=== PATIENT | male | born 1955 | race Caucasian/White ===

== ENCOUNTER 2016-09-25 11:51 | Emergency (ER) | payer MEDICARE, OTHER ==
[2016-09-25 12:40] VITALS: TEMP 98.3
[2016-09-25] MEDS ORDERED: RX INFO: IV CONTRAST WAS GIVEN 1 EACH MISC MISCELLANE PRN (15:06)
--- NOTE | 2016-09-25 15:09 | ED ---
Recheck HPI - General Chief Complaint: Recheck/Abnormal Lab/Rx Stated Complaint: abn labs, face swollen Time Seen by Provider: 09/25/16 14:58 Source: patient, RN notes reviewed Mode of arrival: ambulatory Limitations: no limitations - History of Present Illness Initial Comments: This a 61-year-old male presents emergency Department chief complaint of facial swelling, elevated white blood cell count. Patient states that the swelling and redness yesterday went primary care physician's office who ordered lab work and told him come emergency department secondary to elevated white blood cell count. Patient some similar to this a few months ago and was diagnosed with cellulitis. They're concerned about his parotid gland or possible abscess. Patient denies fever or chills. Denies any dental pain, difficult to swelling, headache, dizziness, chest pain or shortness breath. - Related Data Home Medications Medication Instructions Recorded Confirmed Albuterol Inhaler [Ventolin Hfa 2 puff INHALATION RT-BID 09/25/16 09/25/16 Inhaler] Ascorbic Acid [Vitamin C] 1,000 mg PO W/SUPPER 09/25/16 09/25/16 Aspirin EC [Ecotrin Low Dose] 81 mg PO W/SUPPER 09/25/16 09/25/16 Atorvastatin [Lipitor] 10 mg PO HS 09/25/16 09/25/16 Calcium Carbonate [Calcium] 600 mg PO BID 09/25/16 09/25/16 Cholecalciferol [Vitamin D3] 1,000 unit PO W/SUPPER 09/25/16 09/25/16 Ciprofloxacin HCl [Cipro] 500 mg PO BID 09/25/16 09/25/16 Citalopram Hydrobromide [CeleXA] 20 mg PO DAILY 09/25/16 09/25/16 Cyanocobalamin (Vitamin B-12) 2,000 mcg PO QAM 09/25/16 09/25/16 [Vitamin B-12] Donepezil [Aricept] 10 mg PO QAM 09/25/16 09/25/16 Fish Oil/Dha/Epa [Fish Oil 1,200 2 cap PO BID 09/25/16 09/25/16 mg Fish Oil] Fluticasone/Salmeterol [Advair Hfa 2 puff INHALATION RT-BID 09/25/16 09/25/16 230-21 Mcg Inhaler] Garlic 1 tab PO W/SUPPER 09/25/16 09/25/16 Gatifloxacin [Zymaxid] 1 drop BOTH EYES DAILY PRN 09/25/16 09/25/16 Gemfibrozil [Lopid] 600 mg PO AC-BID 09/25/16 09/25/16 Magnesium Oxide [Mag-Ox] 400 mg PO W/SUPPER 09/25/16 09/25/16 Meloxicam [Mobic] 7.5 mg PO DAILY 09/25/16 09/25/16 Memantine [Namenda] 10 mg PO BID 09/25/16 09/25/16 Metamucil Wafer 1 wafer PO QAM 09/25/16 09/25/16 Niacin (Inositol Niacinate) 400 mg PO BID 09/25/16 09/25/16 [Niacin Flush Free 500 mg Cap] Omeprazole 20 mg PO DAILY 09/25/16 09/25/16 Previous Rx's Medication Instructions Recorded Amoxicillin/Potassium Clav 1 tab PO Q12HR #20 tab 09/25/16 [Augmentin 875-125 Tablet] Allergies Allergy/AdvReac Type Severity Reaction Status Date / Time No Known Allergies Allergy Verified 09/25/16 15:42 Review of Systems ROS Statement: Those systems with pertinent positive or pertinent negative responses have been documented in the HPI. ROS Other: All systems not noted in ROS Statement are negative. Past Medical History Past Medical History: Dementia Additional Past Medical History / Comment(s): Downs syndrome History of Any Multi-Drug Resistant Organisms: None Reported Past Surgical History: Appendectomy Additional Past Surgical History / Comment(s): hip replacement Right side. lower right lobe from lug removed. Past Psychological History: No Psychological Hx Reported Smoking Status: Never smoker Past Alcohol Use History: None Reported Past Drug Use History: None Reported General Exam Limitations: no limitations General appearance: alert, in no apparent distress Head exam: Present: atraumatic, normocephalic, normal inspection Eye exam: Present: normal appearance, PERRL, EOMI. Absent: scleral icterus, conjunctival injection, periorbital swelling ENT exam: Present: mucous membranes moist, TM's normal bilaterally, normal external ear exam. Absent: normal exam (Swollen noted along the left side of the mandible angle), normal oropharynx (Some missing dentition noted no abscess or abnormal lesions noted) Neck exam: Present: normal inspection, full ROM. Absent: tenderness, meningismus, lymphadenopathy Respiratory exam: Present: normal lung sounds bilaterally. Absent: respiratory distress, wheezes, rales, rhonchi, stridor Cardiovascular Exam: Present: regular rate, normal rhythm, normal heart sounds. Absent: systolic murmur, diastolic murmur, rubs, gallop, clicks Neurological exam: Present: alert Skin exam: Present: warm, dry, intact, normal color. Absent: rash Course Vital Signs 09/25/16 09/25/16 12:37 15:53 Temperature 98.3 F Pulse Rate 64 72 Respiratory 20 18 Rate Blood Pressure 108/55 109/57 O2 Sat by Pulse 97 96 Oximetry Medical Decision Making - Medical Decision Making This is a 61-year-old male presented for facial swelling. Patient CT does show x-ray shows parotic gland though he has a normal amylase. Patient had improvement of his white count 18-[address] Bravo and he'll be placed on antibiotics for prostatitis. We did discuss increasing salivation with foods and drinks. Patient was on Cipro and were discussed including clindamycin to his Cipro treatment really prefers single antibiotic and which she'll be switched to Augmentin. - Lab Data Result diagrams: 09/25/16 15:38 09/25/16 15:38 Lab Results 09/25/16 09/25/16 Range/Units 15:38 15:38 WBC 11.4 H (3.8-10.6) k/uL RBC 3.82 L (4.30-5.90) m/uL Hgb 13.2 (13.0-17.5) gm/dL Hct 39.1 (39.0-53.0) % MCV 102.3 H (80.0-100.0) fL MCH 34.6 (25.0-35.0) pg MCHC 33.9 (31.0-37.0) g/dL RDW 13.5 (11.5-15.5) % Plt Count 369 (150-450) k/uL Neutrophils % 76 % Lymphocytes % 10 % Monocytes % 10 % Eosinophils % 2 % Basophils % 1 % Neutrophils # 8.7 H (1.3-7.7) k/uL Lymphocytes # 1.1 (1.0-4.8) k/uL Monocytes # 1.1 H (0-1.0) k/uL Eosinophils # 0.2 (0-0.7) k/uL Basophils # 0.1 (0-0.2) k/uL Macrocytosis Slight Sodium 141 (137-145) mmol/L Potassium 4.2 (3.5-5.1) mmol/L Chloride 106 (98-107) mmol/L Carbon Dioxide 22 (22-30) mmol/L Anion Gap 13 mmol/L BUN 29 H (9-20) mg/dL Creatinine 1.13 (0.66-1.25) mg/dL Est GFR (MDRD) Af Amer >60 (>60 ml/min/1.73 sqM) Est GFR (MDRD) Non-Af >60 (>60 ml/min/1.73 sqM) Glucose 100 H (74-99) mg/dL Calcium 9.1 (8.4-10.2) mg/dL Total Bilirubin 0.6 (0.2-1.3) mg/dL AST 30 (17-59) U/L ALT 30 (21-72) U/L Alkaline Phosphatase 167 H (38-126) U/L Total Protein 7.8 (6.3-8.2) g/dL Albumin 3.8 (3.5-5.0) g/dL Amylase 95 (30-110) U/L Disposition Clinical Impression: Parotitis Disposition: HOME SELF-CARE Condition: Stable Instructions: Sialoadenitis (ED) Additional Instructions: Please return to the Emergency Department if symptoms worsen or any other concerns. Prescriptions: Amoxicillin/Potassium Clav [Augmentin 875-125 Tablet] 1 tab PO Q12HR #20 tab Referrals: Robles Calhoun MD [Primary Care Provider] - 1-2 days Time of Disposition: 17:53
[2016-09-25 15:54] VITALS: RESP 18
[2016-09-25 16:01] LABS: ALT 30 U/L (21-72); AST 30 U/L (17-59); Alkaline Phosphatase 167 U/L (38-126); Amylase 95 U/L (30-110); Anion Gap 13 mmol/L; Blood Urea Nitrogen 29 mg/dL (9-20); Calcium 9.1 mg/dL (8.4-10.2); Carbon Dioxide 22 mmol/L (22-30); Chloride 106 mmol/L (98-107); Glucose 100 mg/dL (74-99); Non-African American GFR(MDRD) >60 (>60 ml/min/1.73 sqM); Potassium 4.2 mmol/L (3.5-5.1); Sodium 141 mmol/L (137-145); Total Bilirubin 0.6 mg/dL (0.2-1.3); Total Protein 7.8 g/dL (6.3-8.2)
[2016-09-25 16:11] LABS: Basophils # (A) 0.1 k/uL (0-0.2); Basophils % (A) 1 %; CH 34.6; Eosinophils # (A) 0.2 k/uL (0-0.7); Eosinophils % (A) 2 %; HCT 39.1 % (39.0-53.0); HDW 2.32; HGB 13.2 gm/dL (13.0-17.5); Luc # (Auto) 0.25; Luc % (Auto) 2; Lymphocytes # (A) 1.1 k/uL (1.0-4.8); Lymphocytes % (A) 10 %; MCH 34.6 pg (25.0-35.0); MCHC 33.9 g/dL (31.0-37.0); MCV 102.3 fL (80.0-100.0); Macrocytosis Slight; Mean Platelet Volume 7.3; Monocytes # (A) 1.1 k/uL (0-1.0); Monocytes % (A) 10 %; Neutrophils # (A) 8.7 k/uL (1.3-7.7); Neutrophils % (A) 76 %; RBC 3.82 m/uL (4.30-5.90); RDW 13.5 % (11.5-15.5); WBC 11.4 k/uL (3.8-10.6); WBC (Perox) 10.81
--- NOTE | 2016-09-25 17:13 | CT ---
EXAMINATION TYPE: CT soft tissue neck w con DATE OF EXAM: 09/25/2016 4:53 PM COMPARISON: NONE HISTORY: 61-year-old male with neck swelling and pain since yesterday TECHNIQUE: Contiguous axial scanning of the neck performed with IV Contrast, patient injected with 10 0 mL of Omnipaque 300. Coronal/sagittal reconstructions performed. CT DLP: 488.30 mGycm Automated exposure control for dose reduction was used. FINDINGS: Visualized intracranial structures, orbits and globes, mastoid air cells appear within normal limits. There is moderate mucosal thickening within the maxillary sinuses and small air-fluid levels in the maxillary and left sphenoid sinuses. Leftward nasal septal deviation. Nasopharynx is clear. Hypertrophy of the lingual tonsils. Some asymmetry of the left aryepiglottic f old probably due to positioning. Glottic and subglottic airway, trachea, and visualized upper lungs a ppear clear. The epiglottis and prevertebral soft tissues are within normal limits. Thyroid gland and submandibular glands are within normal limits. Right parotid gland appears atrophic . There is enlargement and enhancement diffusely throughout the left parotid gland with adjacent subcut aneous fat stranding and mild tracking edema. There may be some more nodular areas of enhancement peter ng the parotid tail, for example, axial image 64. Asymmetric skin thickening along the left side of the face, jaw, and upper neck with reticulations in the subcutaneous fat here. Overlying the left platysma muscle at the anterior upper neck, there is a 3.8 x 1.6 cm ovoid fat dens ity lesion that has mild mass effect onto the underlying platysma suggestive of a lipoma. Borderline enlarged left greater than right upper cervical lymph nodes measuring up to 1.3 cm on the left and 1.1 cm on the right. Some asymmetrically enlarged left submandibular space lymph nodes measu re up to 9 mm. Degenerative changes mid to lower cervical spine. IMPRESSION: 1. ASYMMETRIC ENLARGEMENT WITH DIFFUSE ENHANCEMENT AND SURROUNDING INFLAMMATION OF THE LEFT PAROTID G LAND. CORRELATE FOR PAROTITIS. 2. ASSOCIATED CELLULITIS ALONG THE LEFT SIDE OF THE FACE, JAW, AND UPPER NECK. 3. BORDERLINE TO MILDLY ENLARGED LEFT GREATER THAN RIGHT UPPER CERVICAL LYMPH NODES LIKELY REACTIVE. RECOMMEND CLINICAL FOLLOW-UP TO ENSURE THAT THESE GRADUALLY DECREASE IN SIZE WITH TREATMENT. 4. INCIDENTAL 3.8 CM LIPOMA ANTERIOR LEFT UPPER NECK OVERLYING THE PLATYSMA. 5. CORRELATE FOR ACUTE ON CHRONIC SINUSITIS..
[2016-09-25 18:20] VITALS: BP 105/59; PULSE 78
== END 2016-09-25 18:20 | disposition home or self-care (01) ==
LOC: EC 11:51
DX: K11.20 Sialoadenitis, unspecified (principal); D17.0 Benign lipomatous neoplasm of skin and subcutaneous tissue of head, face and neck; J32.9 Chronic sinusitis, unspecified; F03.90 Unspecified dementia, unspecified severity, without behavioral disturbance, psychotic disturbance, mood disturbance, and anxiety; Z79.51 Long term (current) use of inhaled steroids; Z79.82 Long term (current) use of aspirin; Z79.899 Other long term (current) drug therapy
CPT/HCPCS: 99284; 36415; 80053; 82150; 85025; 87040; 70491; Q9967

== ENCOUNTER 2018-05-27 06:11 | Day surgery (SDC) | payer MEDICARE, OTHER ==
[2018-05-25 16:38] VITALS: BMI 38.5
[~2018-05-27 06:11] MED LIST: DEXAMETHASONE SOD PHOSPHATE 10 MG/ML 1 ML VIAL IV ONE; HYDROmorphone 0.5 MG/0.5 ML SYRINGE IVP PRN; LIDOCAINE 1% 20 ML VIAL (10MG/ML) FOR IV START INTRADERMA PRN; ONDANSETRON 4 MG/2 ML VIAL IVP ONE; SCOPOLAMINE 1.5MG/72HR PATCH TRANSDERM ONE; ceFAZolin IN SWFI 2 GM/20 ML SYRINGE IVP ONE; metroNIDAZOLE-NS PMX 500 MG in SALINE 1 100ML.BAG IVPB ONE
[2018-05-27] MEDS ORDERED: LACTATED RINGERS 1,000 ML IV SCH (06:15)
[2018-05-27 06:54] VITALS: TEMP 98.4
[2018-05-27] MEDS ORDERED: GLYCOPYRROLATE 0.2 MG/ML 2 ML VIAL ONE (07:28)
[2018-05-27] MEDS ORDERED: MIDAZOLAM 2 MG/2 ML VIAL ONE (07:28)
[2018-05-27] MEDS ORDERED: LIDOCAINE 1% INJ 10MG/ML (20 ML MDV) ONE (07:28)
[2018-05-27] MEDS ORDERED: PROPOFOL 10 MG/ML 20 ML VIAL IV ONE (07:28)
[2018-05-27] MEDS ORDERED: SUCCINYLCHOLINE CHLORIDE 100 MG/5 ML SYR IV ONE (07:28)
[2018-05-27] MEDS ORDERED: ePHEDrine SULFATE/0.9% NACL/PF 50 MG/5 ML SYRINGE IV ONE (07:28)
[2018-05-27] MEDS ORDERED: PHENYLEPHRINE-0.9% NACL SYG 1 MG/10 ML SYRINGE ONE (07:28)
[2018-05-27] MEDS ORDERED: NEOSTIGMINE 1 MG/ML 10 ML VIAL ONE (07:28)
[2018-05-27] MEDS ORDERED: fentaNYL (PF) 50 MCG/ML 2 ML AMP ONE (07:28)
[2018-05-27] MEDS ORDERED: ROCURONIUM BROMIDE 10 MG/ML 10 ML VIAL IV ONE (07:28)
[2018-05-27] MEDS ORDERED: LIDOCAINE 2%-EPI 1:200,000 20 ML VIAL SQ ONE ×2 (07:42)
[2018-05-27] MEDS ORDERED: BACITRACIN 500 UNIT/GM OINT 28.4 GM TUBE TOPICAL ONE (08:19)
[2018-05-27 08:35] VITALS: RESP 16
--- NOTE | 2018-05-27 08:42 | P.OP ---
Date of Procedure: 05/27/18 Preoperative Diagnosis: Nonspecific ulcer right floor of mouth ventral tongue Postoperative Diagnosis: Same Procedure(s) Performed: Excision of ulcer and primary closure Implants: None Anesthesia: DASHA Surgeon: Cesar Alva Estimated Blood Loss (ml): 5 IV fluids (ml): 500 Urine output (ml): 0 Pathology: other (In formalin unable to orient) Condition: stable Disposition: PACU Indications for Procedure: Patient had had previous biopsy that was negative in November but the ulcer on the tongue had opened post operatively and never healed. There is a shallow noninflammatory ulcer approximately 1 cm x 1 cm on the right floor of mouth ventral tongue or the tongue meets the mandible. This was difficult access in the best of scenarios but with the patient's cognitive disabilities as well as extreme dry mouth as well as difficult airway of the decision was made to take the patient to the hospital and perform under general endotracheal tube anesthesia. Operative Findings: Difficult access Description of Procedure: Patient was seen in the preoperative holding area with sister and furnace caretaker present consent reviewed including but not limited to bleeding pain infection swelling recurrence of disease need for additional procedures in the future damage to adjacent structures including but not limited to the lingual nerve resulting in numbness or paralysis of the tongue and the submandibular duct which resulted in damage to the function of the submandibular gland and possible need for removal in the future. Patient's and taken to the operating room placed in supine position intubated easily per the anesthesia record. Patient was draped in the usual fashion for clean contaminated case. A 1 cm x 1 cm shallow ulcer was confirmed on the right ventral tongue floor of mouth. All the way and the posterior where the floor of mouth meets the mandibular gingiva. Access was very difficult and the tongue had to be retracted firmly in order to reach the area. Excision with 1- 2 mm margins was achieved and primary closure. During the excision the some mandibular duct was visualized and noted to be intact. Primary closure with 3- 0 chromic gut suture in a interrupted fashion using mattress sutures was achieved. 10 sutures were used to close a 2 cm incision. Postoperative instructions were reviewed with the sister including liquid diet until he was seen in the office in 2 weeks. Plan - Discharge Summary New Discharge Prescriptions: No Action Fish Oil/Dha/Epa [Fish Oil 1,200 mg Fish Oil] 1,000 cap PO BID Garlic 1 tab PO W/SUPPER Magnesium Oxide [Mag-Ox] 250 mg PO W/SUPPER Cholecalciferol [Vitamin D3] 2,000 unit PO W/SUPPER Calcium Carbonate [Calcium] 600 mg PO BID Ascorbic Acid [Vitamin C] 1,000 mg PO W/SUPPER Cyanocobalamin (Vitamin B-12) [Vitamin B-12] 1,000 mcg PO QAM Atorvastatin [Lipitor] 20 mg PO HS Meloxicam [Mobic] 7.5 mg PO DAILY Citalopram Hydrobromide [CeleXA] 20 mg PO QAM Memantine [Namenda] 10 mg PO BID Donepezil [Aricept] 10 mg PO QAM Ferrous Sulfate [Iron (65 MG Elemental)] 325 mg PO DAILY Menthol/Zinc Oxide [Calmoseptine Ointment] 1 applic TOPICAL DAILY Midodrine [ProAmatine] 5 mg PO TID Calcium Carbonate [Calcium] 1,000 mg PO DAILY Discharge Medication List Ascorbic Acid [Vitamin C] 1,000 mg PO W/SUPPER 09/25/16 [History] Atorvastatin [Lipitor] 20 mg PO HS 09/25/16 [History] Calcium Carbonate [Calcium] 600 mg PO BID 09/25/16 [History] Cholecalciferol [Vitamin D3] 2,000 unit PO W/SUPPER 09/25/16 [History] Citalopram Hydrobromide [CeleXA] 20 mg PO QAM 09/25/16 [History] Cyanocobalamin (Vitamin B-12) [Vitamin B-12] 1,000 mcg PO QAM 09/25/16 [History] Donepezil [Aricept] 10 mg PO QAM 09/25/16 [History] Fish Oil/Dha/Epa [Fish Oil 1,200 mg Fish Oil] 1,000 cap PO BID 09/25/16 [History ] Garlic 1 tab PO W/SUPPER 09/25/16 [History] Magnesium Oxide [Mag-Ox] 250 mg PO W/SUPPER 09/25/16 [History] Meloxicam [Mobic] 7.5 mg PO DAILY 09/25/16 [History] Memantine [Namenda] 10 mg PO BID 09/25/16 [History] Calcium Carbonate [Calcium] 1,000 mg PO DAILY 05/25/18 [History] Ferrous Sulfate [Iron (65 MG Elemental)] 325 mg PO DAILY 05/25/18 [History] Menthol/Zinc Oxide [Calmoseptine Ointment] 1 applic TOPICAL DAILY 05/25/18 [ History] Midodrine [ProAmatine] 5 mg PO TID 05/25/18 [History]
[2018-05-27 09:03] VITALS: BP 117/54; PULSE 85
== END 2018-05-27 09:27 | disposition home or self-care (01) ==
LOC: OR 06:11
PROVIDERS: ATTEND Dentist Oral and Maxillofacial Surgery
DX: K12.1 Other forms of stomatitis (principal); K14.0 Glossitis; K13.5 Oral submucous fibrosis; K13.6 Irritative hyperplasia of oral mucosa; Q90.9 Down syndrome, unspecified; G30.9 Alzheimer's disease, unspecified; F02.80 Dementia in other diseases classified elsewhere, unspecified severity, without behavioral disturbance, psychotic disturbance, mood disturbance, and anxiety; Z79.899 Other long term (current) drug therapy
CPT/HCPCS: 41116; 88305; J2250; J1100; J2710; J2405; J2001; J3010; J2370; J0330; J2704

== ENCOUNTER 2018-08-23 19:11 | Inpatient (IN) | payer MEDICARE, OTHER ==
--- NOTE | 2018-08-23 19:29 | ED ---
SOB HPI - General Chief Complaint: Shortness of Breath Stated Complaint: Sepsis, Elevated trop Time Seen by Provider: 08/23/18 19:28 Source: patient, EMS, RN notes reviewed, old records reviewed Mode of arrival: EMS Limitations: altered mental status - History of Present Illness Initial Comments: This is a 62-year-old male the ER for evaluation. Patient is accepted in transfer from [facility] where he presented with shortness of breath. Patient apparently had elevated troponin and a chest pain. Patient is transferred to our hospital for evaluation regards to COPD pneumonia and hypoxia. MD Complaint: shortness of breath, cough -: days(s) Severity: moderate Consistency: constant, now resolved Improves With: oxygen, rest, bronchodilators Worsens With: movement Known History Of: COPD, asthma Context: recent URI Associated Symptoms: cough, sputum production Treatments Prior to Arrival: oxygen, bronchodilator - Related Data Home Medications Medication Instructions Recorded Confirmed Ascorbic Acid [Vitamin C] 1,000 mg PO W/SUPPER 09/25/16 08/23/18 Calcium Carbonate [Calcium] 600 mg PO BID 09/25/16 08/23/18 Cholecalciferol [Vitamin D3] 2,000 unit PO W/SUPPER 09/25/16 08/23/18 Citalopram Hydrobromide [CeleXA] 20 mg PO QAM 09/25/16 08/23/18 Cyanocobalamin (Vitamin B-12) 1,000 mcg PO QAM 09/25/16 08/23/18 [Vitamin B-12] Donepezil [Aricept] 10 mg PO QAM 09/25/16 08/23/18 Fish Oil/Dha/Epa [Fish Oil 1,200 1,000 cap PO BID 09/25/16 08/23/18 mg Fish Oil] Garlic 1 tab PO W/SUPPER 09/25/16 08/23/18 Meloxicam [Mobic] 7.5 mg PO DAILY 09/25/16 08/23/18 Memantine [Namenda] 10 mg PO BID 09/25/16 08/23/18 Ferrous Sulfate [Iron (65 MG 325 mg PO DAILY 05/25/18 08/23/18 Elemental)] Menthol/Zinc Oxide [Calmoseptine 1 applic TOPICAL DAILY 05/25/18 08/23/18 Ointment] Midodrine [ProAmatine] 5 mg PO TID 05/25/18 08/23/18 Atorvastatin [Lipitor] 20 mg PO DAILY 08/23/18 08/23/18 Calcium Carbonate [Tums] 1,000 mg PO DAILY 08/23/18 08/23/18 Magnesium Oxide [Mag-Ox] 250 mg PO W/SUPPER 08/23/18 08/23/18 Ofloxacin 0.3% Ophth Soln [Ocuflox 1 drops BOTH EYES BID PRN 08/23/18 08/23/18 Ophth Soln] Allergies Allergy/AdvReac Type Severity Reaction Status Date / Time No Known Allergies Allergy Verified 08/23/18 19:49 Review of Systems ROS Statement: Those systems with pertinent positive or pertinent negative responses have been documented in the HPI. ROS Other: All systems not noted in ROS Statement are negative. Past Medical History Past Medical History: Asthma, COPD, Dementia, GERD/Reflux, Hypertension Additional Past Medical History / Comment(s): lesion under tongue on rt side,excoriation to buttocks,Downs syndrome,sister states "does very well in hospital settings." History of Any Multi-Drug Resistant Organisms: None Reported Past Surgical History: Appendectomy Additional Past Surgical History / Comment(s): hip replacement Right side. lower right lobe lung removed,partial removal under tongue Past Anesthesia/Blood Transfusion Reactions: No Reported Reaction Additional Past Anesthesia/Blood Transfusion Reaction / Comment(s): unknown hx blood transfusion Past Psychological History: Depression Smoking Status: Never smoker Past Alcohol Use History: Occasional Past Drug Use History: None Reported - Past Family History Mother Family Medical History: Cancer Additional Family Medical History / Comment(s): lymphoma,ovarian Father Family Medical History: Cancer Additional Family Medical History / Comment(s): kidney,"weak heart" General Exam Limitations: altered mental status General appearance: alert, in no apparent distress Head exam: Present: atraumatic, normocephalic, normal inspection Eye exam: Present: normal appearance, PERRL, EOMI. Absent: scleral icterus, conjunctival injection, periorbital swelling ENT exam: Present: normal exam, mucous membranes moist Neck exam: Present: normal inspection. Absent: tenderness, meningismus, lymphadenopathy Respiratory exam: Present: respiratory distress, wheezes, accessory muscle use, decreased breath sounds, prolonged expiratory. Absent: rales, rhonchi, stridor Cardiovascular Exam: Present: regular rate, normal rhythm, normal heart sounds. Absent: systolic murmur, diastolic murmur, rubs, gallop, clicks GI/Abdominal exam: Present: soft, normal bowel sounds. Absent: distended, tenderness, guarding, rebound, rigid Extremities exam: Present: normal inspection, full ROM, normal capillary refill. Absent: tenderness, pedal edema, joint swelling, calf tenderness Back exam: Present: normal inspection Neurological exam: Present: alert, oriented X3, CN II-XII intact Psychiatric exam: Present: normal affect, normal mood Skin exam: Present: warm, dry, intact, normal color. Absent: rash Course Vital Signs 08/23/18 08/23/18 08/23/18 19:16 19:36 19:38 Temperature 97.2 F L Pulse Rate 65 Respiratory 20 20 Rate Blood Pressure 103/62 102/58 O2 Sat by Pulse 97 98 Oximetry - Reevaluation(s) Reevaluation #1: 08/23/18 19:59 Medical record and transfer paperwork are reviewed Reevaluation #2: 08/23/18 19:59 A she is in no acute distress, denies any pain Medical Decision Making - Medical Decision Making 59 female the ER for evaluation, patient be admitted for IV antibiotics secondary to underlying infection, COPD with hypoxia. Shortness of breath. Disposition Clinical Impression: Community acquired pneumonia, Acute exacerbation of chronic obstructive airways disease, Elevated troponin Disposition: ADMITTED IP TO THIS HOSP Condition: Fair Is patient prescribed a controlled substance at d/c from ED?: No Referrals: Robles Calhoun MD [Primary Care Provider] - 1-2 days
[2018-08-23] MEDS ORDERED: PNEUMONIA PROTOCOL UTILIZED 1 EACH MISC PO PRN (19:57)
[2018-08-23] MEDS ORDERED: IPRATROPIUM-ALBUTEROL 3 ML NEB INHALATION STA (19:57)
[2018-08-23] MEDS ORDERED: LEVOFLOXACIN 750MG-D5W PMX 750 MG in DEXTROSE/WATER 1 150ML.BAG IVPB STA (19:57)
[2018-08-23] MEDS ORDERED: PIPERACILLIN-TAZOBACTAM 3.375 GM in SODIUM CHLORIDE 0.9% 100 ML IVPB STA (19:57)
[2018-08-23] MEDS: SODIUM CHLORIDE 0.9% 1,000 ML IV SCH (20:21)
[2018-08-23] MEDS ORDERED: OFLOXACIN 0.3% OPHTH DROPS 5 ML BOTTLE BOTH EYES PRN (22:14)
[2018-08-23] MEDS ORDERED: ACETAMINOPHEN TAB 325 MG TAB PO PRN (22:35)
[2018-08-23] MEDS ORDERED: NALOXONE 0.4 MG/ML 1 ML VIAL IV PRN (22:35)
[2018-08-23] MEDS ORDERED: LACTULOSE 20 GM/30 ML CUP PO PRN (22:35)
[2018-08-23] MEDS ORDERED: ONDANSETRON 4 MG/2 ML VIAL IVP PRN (22:35)
[2018-08-23] MEDS ORDERED: MELATONIN 3 MG TABLET PO PRN (22:35)
[2018-08-23] MEDS ORDERED: ALPRAZolam 0.25 MG TAB PO PRN (22:35)
[2018-08-23] MEDS ORDERED: MAGNESIUM HYDROXIDE 2,400 MG/10 ML CUP PO PRN (22:35)
--- NOTE | 2018-08-23 23:18 | HP ---
HISTORY AND PHYSICAL DATE OF ADMISSION: 08/23/2018 DATE OF SERVICE: 08/23/2018 PRESENTING COMPLAINT: Cough, congested. HISTORY OF PRESENTING COMPLAINT: This is a pleasant 62-year-old patient who follows with Dr. Calhoun. Patient was taken to his PCP about 2 weeks ago with congested cough, shortness of breath, was given antibiotics, to which he did not respond. In face, he started to get worse. He also received steroids. The patient subsequently was sent down here after a CT scan showing bilateral infiltrates. Patient is wheezing, coughing, getting more and more short of breath. Chronic stable medical conditions include Down syndrome with mental retardation, GERD, hypertension. The patient also was wheezing. Did tolerate some diet. Was able to answer some simple questions. REVIEW OF SYSTEMS: CONSTITUTIONAL: Weak, tired. Probably had a fever. HEENT: Congested. RESPIRATORY: As above. Shortness of breath, cough. CARDIOVASCULAR: None. GASTROINTESTINAL: None. GENITOURINARY: None. MUSCULOSKELETAL: None. DERMATOLOGICAL: None. HEMATOLOGICAL: None. LYMPHATICS: None. PSYCHIATRY: Mental retardation. NEUROLOGICAL: None. PAST MEDICAL HISTORY: 1. Asthma. 2. Mental retardation. 3. GERD. 4. Hypertension. 5. Down syndrome. PAST SURGICAL HISTORY: Not known. HOME MEDICATIONS: 1. Magnesium oxide 250 mg with supper. 2. Garlic 1 tablet with supper. 3. Vitamin D3 2000 units with supper. 4. Tums 1000 mg p.o. daily. 5. Vitamin C 1000 mg with supper. 6. Fish oil 1000 mg b.i.d. 7. Iron 325 p.o. daily. 8. Calcium 600 mg b.i.d. 9. Ocuflox 1 drop to both eyes b.i.d. p.r.n. 10.Calmoseptine topically daily. 11.Vitamin B12 1000 mcg p.o. daily. 12.Midodrine 5 mg p.o. t.i.d. 13.Namenda 10 mg p.o. b.i.d. 14.Mobic 7.5 p.o. daily. 15.Aricept 10 mg p.o. daily. 16.Lipitor 20 mg p.o. daily. 17.Celexa 20 mg p.o. daily. ALLERGIES: NONE. PHYSICAL EXAMINATION: Temperature 97.2, pulse 55, respiration 20, blood pressure 103/62, pulse ox 97% on 2 L. GENERAL APPEARANCE: Well built; BMI 38.7. Lying in bed. EYES: Pupils equal. Conjunctivae normal. HEENT: External appearance of nose and ears normal. Oral cavity has some aphthous ulcers. Ears are low-set. Short neck. NECK: JVD not raised. Mass not palpable. RESPIRATORY: Effort increased. LUNGS: Diminished breath sounds. Some expiratory crackles. CARDIOVASCULAR: First and second sounds normal. No edema. ABDOMEN: Soft, nontender. Liver and spleen not palpable. LYMPHATIC: No lymph node palpable in neck or axillae. PSYCHIATRY: Patient can answer some questions. NEUROLOGICAL: Pupils equal. No facial asymmetry. Power and sensation grossly intact. INVESTIGATIONS: Patient's lab work from [facility] shows influenza A and B negative. Troponin I 0.157. BUN 34, creatinine 1.4, potassium 4.6. Lactic acid 2.3. White count 23.7, hemoglobin 13.1, platelets 210. ProBNP 382. ASSESSMENT: 1. Acute bilateral pneumonitis; could be viral; cannot rule out a bacterial cause. 2. Acute exacerbation of intermittent asthma. 3. Gastroesophageal reflux disease. 4. Essential hypertension. 5. Down syndrome. 6. Chronic mental retardation. 7. Lactic acidosis from above. 8. Troponin leak from hemodynamic mismatch. No clinical evidence of acute coronary syndrome. 9. Leukocytosis, probably from patient being on steroids. PLAN: At this point patient will be started on bronchodilators, inhaled and IV steroids. Will also add Mucinex. Will supplemental oxygen, give IV fluids. Other home medications are resumed. Lovenox for DVT prophylaxis. Currently no family is present. MMODL / IJN: [id number] /
[2018-08-24] MEDS: MEMANTINE 10 MG TAB PO SCH ×3 (01:59→21:49)
[2018-08-24] MEDS: MIDODRINE 5 MG TAB PO SCH ×4 (01:59→21:49)
[2018-08-24] MEDS: methylPREDNISolone SOD SUCCI 40 MG/ML 1 ML VIAL IV SCH ×4 (01:59→21:50)
[2018-08-24] MEDS: guaiFENesin 600 MG TABLET.ER PO SCH ×3 (01:59→21:49)
[2018-08-24] MEDS: PIPERACILLIN-TAZOBACTAM 3.375 GM in SODIUM CHLORIDE 0.9% 100 ML IVPB SCH ×3 (07:01→21:47)
[2018-08-24 07:06] LABS: Basophils % (A) 0 %; Eosinophils % (A) 0 %; HCT 43.4 % (39.0-53.0); HGB 13.6 gm/dL (13.0-17.5); Lymphocytes # (A) 0.3 k/uL (1.0-4.8); Lymphocytes % (A) 2 %; MCH 31.5 pg (25.0-35.0); MCHC 31.3 g/dL (31.0-37.0); MCV 100.6 fL (80.0-100.0); Macrocytosis Slight; Mean Platelet Volume 7.5; Monocytes # (A) 0.2 k/uL (0-1.0); Monocytes % (A) 1 %; Neutrophils # (A) 13.9 k/uL (1.3-7.7); Neutrophils % (A) 95 %; Platelet Count 246 k/uL (150-450); RBC 4.32 m/uL (4.30-5.90); RDW 13.6 % (11.5-15.5); WBC 14.6 k/uL (3.8-10.6)
[2018-08-24 07:21] LABS: Albumin 3.3 g/dL (3.5-5.0); Calcium 8.3 mg/dL (8.4-10.2); Potassium 4.6 mmol/L (3.5-5.1); Total Bilirubin 0.5 mg/dL (0.2-1.3); Total Protein 6.6 g/dL (6.3-8.2)
[2018-08-24] MEDS: SODIUM CHLORIDE 0.9% 1,000 ML IV SCH ×2 (08:07→17:01)
[2018-08-24] MEDS: CALCIUM CARBONATE 500 MG CHEWABLE PO SCH ×3 (08:07→21:49)
[2018-08-24] MEDS: CYANOCOBALAMIN 500 MCG TAB PO SCH (08:18)
[2018-08-24] MEDS: ATORVASTATIN 20 MG TAB PO SCH (08:18)
[2018-08-24] MEDS: CITALOPRAM HYDROBROMIDE 20 MG TAB PO SCH (08:18)
[2018-08-24] MEDS: DONEPEZIL 10 MG TAB PO SCH (08:18)
[2018-08-24] MEDS: ENOXAPARIN 40 MG/0.4 ML SYRINGE SQ SCH (08:18)
[2018-08-24] MEDS: FERROUS SULFATE 325 MG TAB PO SCH (08:18)
[2018-08-24] MEDS: MELOXICAM 7.5 MG TAB PO SCH (08:19)
[2018-08-24] MEDS: IPRATROPIUM-ALBUTEROL 3 ML NEB INHALATION SCH ×5 (08:56→19:14)
[2018-08-24] MEDS: CHOLECALCIFEROL 1,000 UNIT TAB PO SCH (17:00)
[2018-08-24] MEDS: ASCORBIC ACID 500 MG TAB PO SCH (17:00)
[2018-08-24] MEDS: MAGNESIUM OXIDE 400 MG TAB PO SCH (17:00)
[2018-08-24] MEDS ORDERED: LEVOFLOXACIN 750MG-D5W PMX 750 MG in DEXTROSE/WATER 1 150ML.BAG IVPB SCH (21:00)
--- NOTE | 2018-08-24 22:15 | PN ---
PROGRESS NOTE DATE OF SERVICE: 08/24/2018. PRESENTING COMPLAINT: Congested cough. INTERVAL HISTORY: This patient presented with bilateral pneumonitis, exacerbation of asthma, still got a wheezing cough. Did tolerate a bit of diet. Lying in bed. REVIEW OF SYSTEMS: Done for constitutional, cardiovascular, GI, pulmonary; relevant findings as above. CURRENT MEDICATIONS: Reviewed that include DuoNeb, IV Solu-Medrol. PHYSICAL EXAMINATION: VITAL SIGNS: On examination, afebrile. Pulse 70, respiratory rate 16. Blood pressure 130/70, pulse ox 95% on room air. GENERAL APPEARANCE: Lying in bed, awake. EYES: Pupils are equal. Conjunctivae normal. NECK: JVD not raised. Mass not palpable. RESPIRATORY: Effort increased. LUNGS: Decreased breath sounds. Some wheezing. CARDIOVASCULAR: 1st and 2nd sounds normal. No edema. ABDOMEN: Soft, nontender. Liver and spleen not palpable. PSYCHIATRY: Awake. Does answer simple questions. INVESTIGATIONS: White count 14.6, hemoglobin 13.6, potassium 4.6, BUN 23, creatinine 1.14. ASSESSMENT: 1. Acute bilateral pneumonitis could be viral cannot rule out a bacterial cause. 2. Acute exacerbation of intermittent asthma. 3. Gastroesophageal reflux disease. 4. Essential hypertension. 5. Down syndrome. 6. Chronic mental retardation. 7. Lactic acidosis from above. 8. Troponin leak from hemodynamic mismatch. No clinical evidence of acute coronary syndrome. 9. Leukocytosis probably from patient's use of steroids. PLAN: Continue current medication and treatment plan. Patient's Solu-Medrol will be maintained on 40 mg q.8. patient also on IV Zosyn. MMODL / IJN: [id number] /
[2018-08-25] MEDS: PIPERACILLIN-TAZOBACTAM 3.375 GM in SODIUM CHLORIDE 0.9% 100 ML IVPB SCH ×2 (06:20→16:16)
[2018-08-25] MEDS: methylPREDNISolone SOD SUCCI 40 MG/ML 1 ML VIAL IV SCH ×2 (06:20→16:17)
[2018-08-25] MEDS: IPRATROPIUM-ALBUTEROL 3 ML NEB INHALATION SCH ×3 (08:51→16:18)
[2018-08-25] MEDS: MELOXICAM 7.5 MG TAB PO SCH (09:31)
[2018-08-25] MEDS: ATORVASTATIN 20 MG TAB PO SCH (09:31)
[2018-08-25] MEDS: ENOXAPARIN 40 MG/0.4 ML SYRINGE SQ SCH (09:31)
[2018-08-25] MEDS: CALCIUM CARBONATE 500 MG CHEWABLE PO SCH ×2 (09:31→09:32)
[2018-08-25] MEDS: CYANOCOBALAMIN 500 MCG TAB PO SCH (09:31)
[2018-08-25] MEDS: CITALOPRAM HYDROBROMIDE 20 MG TAB PO SCH (09:32)
[2018-08-25] MEDS: DONEPEZIL 10 MG TAB PO SCH (09:32)
[2018-08-25] MEDS: FERROUS SULFATE 325 MG TAB PO SCH (09:32)
[2018-08-25] MEDS: MIDODRINE 5 MG TAB PO SCH ×2 (09:32→16:17)
[2018-08-25] MEDS: guaiFENesin 600 MG TABLET.ER PO SCH (09:32)
[2018-08-25] MEDS: MEMANTINE 10 MG TAB PO SCH (09:32)
[2018-08-25 09:59] VITALS: RESP 18
[2018-08-25] MEDS: CHOLECALCIFEROL 1,000 UNIT TAB PO SCH (16:17)
[2018-08-25] MEDS: ASCORBIC ACID 500 MG TAB PO SCH (16:17)
[2018-08-25] MEDS: MAGNESIUM OXIDE 400 MG TAB PO SCH (16:18)
[2018-08-25 16:50] VITALS: BP 124/65; PULSE 85; TEMP 96.8
[2018-08-25] MEDS: SODIUM CHLORIDE 0.9% 1,000 ML IV SCH ×2 (17:10→17:16)
--- NOTE | 2018-08-26 07:14 | DS ---
DISCHARGE SUMMARY DATE OF ADMISSION: 08/23/2018 DATE OF DISCHARGE: 08/25/2018 FINAL DIAGNOSES: 1. Acute bilateral pneumonitis could be viral cannot rule out a bacterial cause. 2. Acute exacerbation of intermittent asthma. 3. Gastroesophageal reflux disease. 4. Essential hypertension. 5. Down syndrome. 6. Chronic mental retardation. 7. Lactic acidosis from above. 8. Troponin leak from hemodynamic mismatch. No evidence of acute coronary syndrome. 9. Leukocytosis from steroids. HOSPITAL COURSE: This patient was transferred from an outside facility where he was getting treated for his symptoms for 2 weeks prior to coming in having failed that. The patient was found to have bilateral infiltrates. The patient was treated with bronchodilators, steroids and antibiotics to which he responded well. By the time of discharge, doing really well, sitting up, tolerating a diet. On exam, lungs improved air entry. Patient is on room air, tolerating a diet. On examination, temperature 96.8 pulse 85, respiratory 18, blood pressure 124/65, pulse ox 96% on room air. LUNGS: Fair entry. The patient is able answer simple questions. DISCHARGE MEDICATIONS: 1. Vitamin C 1000 mg with supper. 2. Calcium 600 mg p.o. b.i.d. 3. Vitamin D3, 2000 units with supper. 4. Celexa 20 mg p.o. daily. 5. Vitamin B12, 1000 mcg p.o. daily. 6. Aricept 10 mg p.o. daily. 7. Fish oil 1000 mg p.o. b.i.d. 8. Garlic supplement. 9. Mobic 7.5 p.o. daily. 10.Namenda 10 mg p.o. b.i.d. 11.Ferrous sulfate 325 p.o. daily. 12.ProAmatine 5 mg p.o. t.i.d. 13.Lipitor 20 mg p.o. daily. 14.Tums 1000 mg p.o. daily. 15.Magnesium oxide 250 mg p.o. with supper. 16.Ocuflox 1 drop both eyes b.i.d. p.r.n. 17.Augmentin 875 1 tablet p.o. q.12, ten tablets. 18.Mucinex 1200 mg p.o. q.12, fourteen tablets. 19.Prednisone 40 mg from day 1 reduced by 10 mg daily until gone. Follow up with Dr. Calhoun on 09/01/2018, Care was discussed with the family who was at the bedside. MMODL / IJN: [id number] /
== END 2018-08-25 19:12 | disposition home or self-care (01) | DRG 194 ==
LOC: EC 19:11 → EEVIPCON 19:11 → 3SCARD 19:57
PROVIDERS: ADMIT Hospitalist; ATTEND Hospitalist
DX: J12.9 Viral pneumonia, unspecified (principal); E87.2 Acidosis; J44.0 Chronic obstructive pulmonary disease with (acute) lower respiratory infection; J45.21 Mild intermittent asthma with (acute) exacerbation; J15.9 Unspecified bacterial pneumonia; Q90.9 Down syndrome, unspecified; F03.90 Unspecified dementia, unspecified severity, without behavioral disturbance, psychotic disturbance, mood disturbance, and anxiety; F79 Unspecified intellectual disabilities; I10 Essential (primary) hypertension; K21.9 Gastro-esophageal reflux disease without esophagitis; R09.02 Hypoxemia; T38.0X5A Adverse effect of glucocorticoids and synthetic analogues, initial encounter; F32.9 Major depressive disorder, single episode, unspecified; R77.9 Abnormality of plasma protein, unspecified; D72.829 Elevated white blood cell count, unspecified; Z79.899 Other long term (current) drug therapy; Z96.641 Presence of right artificial hip joint; Z90.49 Acquired absence of other specified parts of digestive tract; Z90.2 Acquired absence of lung [part of]; Z80.7 Family history of other malignant neoplasms of lymphoid, hematopoietic and related tissues; Z82.49 Family history of ischemic heart disease and other diseases of the circulatory system; Z80.41 Family history of malignant neoplasm of ovary
CPT/HCPCS: 80053; 85025; 87040; 94640; 94760; 96365; 99285